=== PATIENT | female | born 1935 | race Caucasian/White ===

== ENCOUNTER → 2017-08-19 | Outpatient (CLI) | payer OTHER ==
[~2017-08-19] MED LIST: ATOR20TA15 PO; CHOL50006 PO; GLUCTAB PO; IPRA0.02 NEB; IPRASOL INH; LANTUS2P SQ; LEVO150T7 PO; LIPI80TA16 PO; LOSA25TA31 PO; LOSA50TA PO; METF500T PO; NAPR250T4 PO; PERC5TAB12 PO; SYNT150T PO; VESI5TAB2 PO; VITA1000 PO; ZANT150T2 PO; ZOFR4TAB3 SL
--- NOTE | 2017-08-20 08:30 | RSPPFT ---
DATE OF PROCEDURE: 08/19/17 COMMENTS: The forced vital capacity shows a small reduction. The FEV1 and FEF 25-75 both show a small reduction with no improvement after bronchodilator. The FEV1/FVC ratio is reduced. The total lung capacity is normal with a normal residual volume but an increased RV/TLC ratio. IMPRESSION: This is compatible with large and small airways, irreversible, obstructive lung disease. The diffusion capacity, when corrected, is normal.
== END ==
LOC: HRSP 12:58
PROVIDERS: ATTEND Specialist
DX: C34.91 Malignant neoplasm of unspecified part of right bronchus or lung (principal)
CPT/HCPCS: 94060; 94726; 94729

== ENCOUNTER 2017-08-21 06:21 | Day surgery (SDC) | payer OTHER ==
[~2017-08-21] VITALS: Ht 162.6 cm; Wt 116.2 kg
[~2017-08-21 06:21] MED LIST changes: -IPRASOL INH; -VITA1000 PO
[2017-08-21 07:00] VITALS: BP 186/111; PULSE 78; RESP 18; TEMP 98.2; O2SAT 92
[2017-08-21] MEDS ORDERED: LANTUS2P SQ (07:11)
[2017-08-21] MEDS ORDERED: VITA1000 PO (07:11)
[2017-08-21] MEDS ORDERED: IPRASOL INH (07:11)
[2017-08-21 07:17] LABS: AUTOMATED NEUTROPHIL # 6.5 TH/MM3 (1.8-7.7); BASOPHIL # 0.1 TH/MM3 (0-0.2); BASOPHIL % 1.3 % (0.0-2.0); EOSINOPHIL # 0.1 TH/MM3 (0-0.4); HEMATOCRIT 38.2 % (35.0-46.0); LYMPH % 15.1 % (9.0-44.0); LYMPHOCYTE # 1.3 TH/MM3 (1.0-4.8); MEAN CELL VOLUME 60.2 FL (80.0-100.0); MEAN CORPUSCULAR HEMOGLOBIN 18.9 PG (27.0-34.0); MEAN CORPUSCULAR HGB CONC 31.3 % (32.0-36.0); MEAN PLATELET VOLUME 8.6 FL (7.0-11.0); MONO % 9.6 % (0.0-8.0); MONOCYTE # 0.8 TH/MM3 (0-0.9); PLATELET COUNT 274 TH/MM3 (150-450); RED BLOOD COUNT 6.34 MIL/MM3 (4.00-5.30); RED CELL DISTRIBUTION WIDTH 16.4 % (11.6-17.2); WHITE BLOOD COUNT 8.8 TH/MM3 (4.0-11.0)
[2017-08-21 07:26] LABS: PROTHROMBIN TIME - PATIENT 10.5 SEC (9.8-11.6)
[2017-08-21] MEDS ORDERED: SODIUM CHLORIDE 0.9% 1000 ML IV SCH (07:30)
[2017-08-21] MEDS ORDERED: CHLORHEXIDINE GLUCONATE 2 % 1 PACK (2 CLOTHS) TOPICAL SCH (07:30)
[2017-08-21] MEDS ORDERED: POVIDONE IODINE 5% (ANTISEPSIS KIT) 4 APPLICATIONS EACH NARE SCH (07:30)
[2017-08-21] MEDS ORDERED: VANCOMYCIN 1000 MG/NS 250 ML - implanted port/tunneled catheter IV SCH ×2 (07:30)
[2017-08-21] MEDS ORDERED: fentaNYL CITRATE 250 MCG/5 ML AMP ONE (07:35)
[2017-08-21] MEDS ORDERED: MIDAZOLAM HCL 5 MG/5 ML VIAL ONE (07:35)
[2017-08-21] MEDS ORDERED: LIDOCAINE 1%/EPINEPHrine 1:100,000 SOLN 30 ML VIAL ONE (07:39)
[2017-08-21] MEDS ORDERED: ONDANSETRON HCL 4 MG/2 ML VIAL ONE (08:47)
--- NOTE | 2017-08-21 08:49 | PD.RAD ---
Post Procedure Progress Note Pre Procedure Diagnosis: (1) Lung cancer Post Procedure Diagnosis: (1) Lung cancer Procedure Date: August 21, 2017 Supervising Radiologist: Itz Perdomo Estimated blood loss: 3cc Anesthesia: Local, Conscious Sedation Plan of Activity Patient to Unit: ROPU Patient Condition: Poor Additional Comments: Port placed via the right IJ Port catheter in good position OK for use Full dictated report to follow See PACS Report for procedural detail/treatment Itz Perdomo MD August 21, 2017 08:49
[2017-08-21 09:00] VITALS: BP 172/76; PULSE 68; RESP 20; TEMP 97.8; O2SAT 94
[2017-08-21] MEDS ORDERED: SODIUM CHLORIDE 0.9% FLUSH 10 ML FLUSH IVF PRN (09:00)
[2017-08-21 09:15] VITALS: BP 138/68; PULSE 64; RESP 20; O2SAT 91
[2017-08-21 09:45] VITALS: BP 139/66; PULSE 50; RESP 20; O2SAT 92
--- NOTE | 2017-08-21 09:45 | RADRPT ---
EXAM DATE/TIME: 08/21/2017 07:58 [facility] COMPARISON: No previous studies available for comparison. INDICATIONS : Patient presents with lung cancer in need of port placement for treatment. MEDICAL HISTORY : DVT Lung cancer COPD Diabetes Type II HTN Hypothyroidism Kidney disease Peripheral neuropathy SURGICAL HISTORY : Appendectomy Biopsy RT knee surgery Thyroidectomy ENCOUNTER: Initial ACUITY: 1 month PAIN SCORE: 0/10 LOCATION: N/A FLUORO TIME: 0.5 minutes IMAGE SERIES: 1 SEDATION TIME: 60 minutes ACCESS: Right internal jugular vein SEDATION: 1.) 5 mg midazolam (Versed) IV 2.) 250 mcg fentanyl (Sublimaze) IV Prophylactic antibiotics were administered with appropriate pre-procedure timing. Vancomycin within 2 hours of procedure, Ancef (or alternative) within 1 hour of procedure. DEVICE: 1. 8 Lao single lumen Bioflo Port PROCEDURE : 1. Continuous pulse oximetry and EKG monitoring. 2. Intravenous conscious sedation. 3. Ultrasound guidance for venous access. 4. Fluoroscopic guided implantable central venous port placement. The patient was placed supine. The neck was prepped in sterile fashion. Full sterile technique was u sed, including cap, mask, sterile gloves and gown, and a large sterile sheet. Hand hygiene and 2% ch lorhexidine Betadine was utilized per protocol for cutaneous antisepsis with appropriate dry time for site. Sterile gel and sterile probe cover were utilized for ultrasound guidance. The skin and sub cutaneous tissues were infiltrated with local anesthetic solution. Under direct ultrasound guidance, central venous access was accomplished in the targeted vessel. The ultrasound images depicting access guidance were stored and saved to PACS for permanent record. A s ubcutaneous pocket was created using blunt dissection. The port was introduced to the pocket. The c atheter tubing was fed through a subcutaneous tunnel to the venotomy site. The catheter tubing was c ut to a suitable length and then was introduced through a valved Peel-Away sheath and positioned with catheter tubing tip at the cavo-atrial junction level. The pocket incision was closed with subcutic ular Vicryl suture. Steri-Strips were applied. The port was flushed and locked with heparin solutio n per protocol. Sterile dressing was applied to the site. The patient tolerated the procedure well. Conscious sedation was performed with the prescribed dosages and duration as above in the presence of an independent trained radiology nurse to assist in the monitoring of the patient. EKG and oximetry remained stable throughout the procedure. The patient tolerated the procedure well and there were no complications. The patient was sent to post anesthesia recovery in stable condition. CONCLUSION: Uncomplicated ultrasound and fluoroscopic guided implanted central venous port catheter placement as described in detail above. An 8 Lao Power port was placed. Itz Perdomo MD on August 21, 2017 at 9:42 Board Certified Radiologist. This report was verified electronically.
[2017-08-21 10:15] VITALS: BP 142/51; PULSE 81; RESP 20; O2SAT 90
== END 2017-08-21 11:15 | disposition home or self-care (01) ==
LOC: HROP 06:21 → HRIP 06:29 → HROP 11:15
PROVIDERS: ATTEND Internal Medicine
DX: Z45.2 Encounter for adjustment and management of vascular access device (principal); E03.9 Hypothyroidism, unspecified; I10 Essential (primary) hypertension; G62.9 Polyneuropathy, unspecified; E11.9 Type 2 diabetes mellitus without complications; J44.9 Chronic obstructive pulmonary disease, unspecified; N28.9 Disorder of kidney and ureter, unspecified; I82.409 Acute embolism and thrombosis of unspecified deep veins of unspecified lower extremity
CPT/HCPCS: 36561; 76937; 77001; 85025; 85610; 85730; 99152; 99153; C1788; J1642; J2250; J2405; J3010; J3370; J7030; J7050